=== PATIENT | female | born 1945 | race Caucasian/White ===

== ENCOUNTER → 2017-04-07 13:35 | Outpatient (CLI) | payer MEDICARE, OTHER ==
[2011-05-28 08:59] VITALS: BMI 24.4
== END | disposition home or self-care (01) ==
LOC: D.CT 13:35
DX: R10.9 Unspecified abdominal pain (principal)

== ENCOUNTER → 2017-11-29 09:28 | Outpatient (CLI) | payer MEDICARE, OTHER ==
[2011-05-28 08:59] VITALS: BMI 24.4
--- NOTE | ~2017-11-29 | EC ---
PATIENT:EILEEN RUANO DATE OF SERVICE: 11/29/17 SEX: F MEDICAL RECORD: [id number] DATE OF : [birth year] LOCATION:[facility] AGE OF PATIENT: 71 ADMISSION DATE: 11/29/17 REFERRING PHYSICIAN: INTERPRETING PHYSICIAN: TONY AVENDANO MD ECHOCARDIOGRAM REPORT ECHO CHARGES 4 ECHO COMPLETE CLINICAL DIAGNOSIS: ANGINA,ABN STRESS,DYSPNEA/HTN ECHOCARDIOGRAPHIC MEASUREMENTS (adult normal given) AC root (d.<3.7cm) 3.5 cm LV Septum d (<1.2 cm> 1.2 cm Valve Excursion 1.4 cm LV Septum (systole) 1.4 cm Left Atria (s.<4.0cm> 3.9 cm LVPW d(<1.2cm) 1.4 cm RV (d.<2.3cm) 3.7 cm LVPW (sytole) 1.5 cm LV diastole(<5.6CM) 4.4 cm MV E-F(>70mm/sec) cm LV systole 2.1 cm LVOT Diameter 1.6 cm MV exc.(>10mm) 1.2 cm Est.ejection fraction (50-75%) % Pericardial Effusion N DOPPLER: LVIT cm/sec A 57.0 cm/sec E 41.0 cm/sec LA cm/sec RVSP 34 mmHg LVOT 115 cm/sec AOP1/2T 531 m/s Asc. Ao 150 cm/sec RVOT 86 cm/sec RA cm/sec PA 112 cm/sec AV Gradient Peak 9.00 mmHg AV Mean 4.71 mmHg AV Area 1.8 cm MV Gradient Peak 1.96 mmHg MV Mean 1.00 mmHg MV Area cm COMMENTS: Train Starter: Cleveland FLOREZ Interior Decorator: Becky Avendano TAPE# PACS DATE OF SERVICE: 11/29/2017 PROCEDURE: Transthoracic echocardiogram. FINDINGS: 1. Left ventricle has evidence of mild left ventricular hypertrophy with inflow characteristics showing diastolic dysfunction. 2. The mitral valve appears to be normal structurally. 3. The aortic valve is mildly sclerotic with mild aortic insufficiency with no evidence of significant stenosis. ECHOCARDIOGRAM REPORT [id number] EILEEN RUANO 4. The mitral valve has mild mitral regurgitation, but is structurally normal. 5. The tricuspid valve has mild tricuspid regurgitation. The RVSP is upper limits of normal to mildly elevated at 34 mmHg. 6. There is no significant pleural effusion or pericardial effusion. 7. The right atrium is normal size, normal function. 8. The right ventricle is mildly dilated with normal function. CONCLUSION: The patient has evidence of hypertensive heart disease with borderline elevated pulmonary pressures. TRANSINT:[id number] Voice Confirmation ID: [id number] DOCUMENT ID: [id number] TONY AVENDANO MD at 1522 CC: [id number] DICTATION DATE: 11/30/17 1003 SERVICES DELIVERY DRIVER: 11/30/17 1247 DEP CLI 11/29/17 [place] [address] [place] [address]
== END | disposition home or self-care (01) ==
LOC: D.ECHO 09:28
DX: I20.9 Angina pectoris, unspecified (principal); I10 Essential (primary) hypertension; R06.00 Dyspnea, unspecified; R94.39 Abnormal result of other cardiovascular function study

== ENCOUNTER → 2017-12-12 19:13 | Outpatient (CLI) | payer MEDICARE, OTHER ==
[2011-05-28 08:59] VITALS: BMI 24.4
== END | disposition home or self-care (01) ==
LOC: D.SLEEP 08:00
DX: G47.10 Hypersomnia, unspecified (principal)

== ENCOUNTER → 2017-12-20 13:02 | Outpatient (CLI) | payer MEDICARE, OTHER ==
[2011-05-28 08:59] VITALS: BMI 24.4
[2017-12-20 14:10] LABS: CHOL - HDL RATIO 5.5 ratio (2.3-4.1); LDL-HDL RATIO 3.4 ratio (1.5-3.5)
== END | disposition home or self-care (01) ==
LOC: D.LABREF 13:02
PROVIDERS: Internal Medicine Cardiovascular Disease
DX: E78.5 Hyperlipidemia, unspecified (principal)

== ENCOUNTER → 2018-02-27 09:55 | Outpatient (CLI) | payer MEDICARE, OTHER ==
[2011-05-28 08:59] VITALS: BMI 24.4
[~2018-02-27 09:55] MED LIST: ATIVAN1 MG PO; AZULFIDINE500 MG PO; BUPROPION XL150 MG PO; CARAFATE1 G PO; COREG12.5 MG PO; ELIQUIS5 MG PO; LAMICTAL200 MG PO; LEVOTHYROXINE75 MCG PO; MYRBETRIQ50 MG PO; NEURONTIN 300300 MG PO; OMEPRAZOLE20 M1 PO; PROPRANOLOL HCL60 M1 PO; REPATHA SY140 MG/1 M SC; ULTRAM50 MG PO; ZOLOFT100 MG PO
[2018-03-21 08:21] VITALS: BMI 23.8
== END | disposition home or self-care (01) ==
LOC: D.NM 09:55
DX: E83.52 Hypercalcemia (principal)

== ENCOUNTER → 2018-03-21 07:07 | Outpatient (CLI) | payer MEDICARE, OTHER ==
[~2018-03-21] VITALS: Ht 152.4 cm; Wt 55.5 kg
--- NOTE | ~2018-03-21 | TEE ---
PATIENT:EILEEN RUANO MEDICAL RECORD: [id number] LOCATION:[facility] AGE OF PATIENT: 72 ADMISSION DATE: 03/21/18 SEX: F REFERRING PHYSICIAN: INTERPRETING PHYSICIAN: TONY AVENDANO MD TRANSESOPHAGEAL ECHOCARDIOGRAM Date: 03/21/18 BULMARO CHARGE Y INDICATIONS: ATRIAL FIB/ ASSESS FOR CLOTS, PRE-CARDIOVERSION PREMEDICATIONS: PATIENT'S RESPONSE PROCEDURE DOPPLER MEASUREMENTS: LVIT LA PA RA LVOT RVOT Asc. Ao AV Gradient Peak AV Mean AV Area MV Gradient Peak MV Mean MV Area INTERPRETATION: Doppler: 2-D: NO CLOTS COLOR FLOW DOPPLER NORMAL SALINE STUDY: MISCELLANOUS: DIAGNOSIS: PLAN: Oven Heater:4 Dr. Avendano [place] Instructor: Cleveland FLOREZ COMMENTS: DATE OF SERVICE: 03/21/2018 PROCEDURES: 1. Transesophageal echocardiogram. 2. Direct current biphasic cardioversion. INDICATION: Atrial fibrillation. DESCRIPTION OF PROCEDURE: The patient was into brought to cardiac TRANSESOPHAGEAL ECHOCARDIOGRAM REPORT [id number] EILEEN RUANO catheterization lab in stable condition. The patient in supine position on the rney, where she was placed in the left lateral position and with anesthesia support, we were able to advance the transesophageal echo probe into the mid esophagus. We were able to visualize left atrial appendage without any difficulty showing no thrombus or clot. We then cardioverted the patient while she was in a supine position with 200 joules of biphasic energy successfully. IMPRESSION: Successful BULMARO and cardioversion. RECOMMENDATIONS: Continue current therapies. Follow up in 1 week with EKG. TRANSINT:[id number] Voice Confirmation ID: [id number] DOCUMENT ID: [id number] at 0819 CC: [id number] DICTATION DATE: 03/21/1824 PACKING SUPERVISOR: 03/21/18 1450 DEP CLI 03/21/18 [place] [id number] [place] [id number]
--- NOTE | ~2018-03-21 | HEMODYNAMI ---
PATIENT:EILEEN RUANO MEDICAL RECORD: [id number] : 47 LOCATION:[facility] ADMISSION DATE: 03/21/18 Generatedon:03/21/20189:36 Patient name: EILEEN RUANO Patient #: [id number] SSN: : 1945 Date of study: 03/21/2018 Page: Of Hemodynamic Procedure Report Patient Data Patient Demographics Procedure consent was obtained First Name: EILEEN Gender: Female Last Name: BINDU : 1945 Patient #: [id number] Age: 72 year(s) Race: Unknown Additional ID: [id number] Contact details [address]: [address] [place] [address] State: [place] City: [place] Zip code: [address] Past Medical History Allergies Allergen Reaction Date Comments Reported Other allergy 03/21/2018 CORGARD, MACRODANTIN, TALWIN, TETRACYCLIN Admission Admission Data Admission Date: 03/21/2018 Admission Time: 7:07 Lab Results Lab Result Date: 03/21/2018 Lab Result Time: 0:00 Biochemistry Name Units Result Min Max BUN mg/dl 23 --(----)-* 7 18 Creatinine mg/dl 1 --(--*-)-- 0.6 1.3 CBC Name Units Result Min Max Hemoglobin g/dl 12.1 *-(----)-- 13.5 17.5 Procedure Procedure Types Cath Procedure Diagnostic Procedure Cardioversion External BULMARO Procedure Description Procedure Date Procedure Date: 03/21/2018 Procedure Start Time: 8:52 Procedure Staff Name Function Max Padilla MD Performing Physician Leslie Silva RT Monitor Cary Child RN Nurse Arjun Mancia MD Additional personnel Raman Walsh Dope Mixer Procedure Data Cath Procedure Estimated blood loss: 0 ml Procedure Complications No complications Procedure Medications Medication Administration Route Dosage Oxygen NC 2 l/min unlisted medication 30 ml unlisted medication 30 ml Refer to Anesthesia Notes for Sedation Medications Hemodynamics Rest HGB: 12.1 (g/dl) Heart Rate: 90 (bpm) Snapshots Pre Cath Intra NCS Post Cath Vital Signs Time Heart Resp SPO2 etCO2 NIBP (mmHg) Rhythm Pain Sedation Rate (ipm) (%) (mmHg) Status Level (bpm) 8:59:33 87 24 95 0 134/90(100) NSR 0 (11) 10(A) , No pain 9:05:09 87 18 94 0 127/49(97) NSR 0 (11) 10(A) , No pain 9:09:18 94 17 95 0 130/95(111) NSR 0 (11) 10(A) , No pain 9:14:15 86 16 96 0 112/95(103) NSR 0 (11) 10(A) , No pain 9:19:12 83 21 94 27.7 107/78(88) NSR 0 (11) 10(A) , No pain 9:23:26 66 33 93 11.2 118/70(100) NSR 0 (11) 9(A) , No pain 9:27:42 65 17 97 31.4 122/68(84) NSR 0 (11) 9(A) , No pain 9:30:20 68 16 95 37.4 124/69(78) NSR 0 (11) 9(A) , No pain 9:34:36 67 18 97 33.7 114/76(92) NSR 0 (11) 10(A) , No pain Medications Time Medication Route Dose Verified Delivered Reason Notes Effectivene ss by by 9:15:45 Oxygen NC 2 Maxlazaro Townsend used for l/min Randy Child RN procedure 9:17:11 Visc. gargle 30 ml Max Buffie Per Licocaine Randy Child RN physician 9:17:17 Refer to Max Buffie Anesthesia Randy Child RN Notes for MD Sedation Medications 9:17:28 Malox gargle 30 ml Max Buffie Per Randy Child RN physician Procedure Log Time Note 8:45:57 Cary Child RN sent for patient. Start room use. 8:53:06 Time tracking: Regular hours (M-F 7:00 - 5:00) 8:53:09 Plan of Care:Hemodynamics will remain stable., Cardiac rhythm will remain stable., Comfort level will be maintained., Respiratory function will remain adequate., Patient/ family verbilizes understanding of procedure., Procedure tolerated without complication., Recovers from procedure without complications.. 8:53:10 Signed procedure consent form obtained from patient. 8:53:15 Patient arrived from Pre/Post Procedure Room to CCL 3. Patient remains on bed/stretcher for procedure. 8:53:16 Warm blankets applied, and adeola hugger turned on for patient comfort. 8:53:17 Correct patient and procedure confirmed by team. 8:53:18 ECG and BP/O2 sat monitors applied to patient. 8:58:24 Vital chart was started 8:58:38 Baseline sample Acquired. 8:58:43 Rhythm: atrial flutter 8:58:44 Full Disclosure recording started 8:58:52 H&P Date Dictated: 03/14/2018 Within 30 days and on chart., H&P Addendum completed by physician on day of procedure. (MUST COMPLETE FOR ALL OUTPATIENTS). 8:58:54 Pre-procedure instructions explained to patient. 8:58:54 Pre-op teaching completed and patient verbalized understanding. 8:58:56 Family in patients room. 8:58:57 Patient NPO since Midnight. 8:59:36 Patient allergic to Other allergyCORGARD, MACRODANTIN, TALWIN, TETRACYCLIN 8:59:39 Is the patient allergic to Iodine/contrast media? No. 8:59:41 Is patient on blood thinner?Yes 9:00:14 LAST DOSE OF ELIQUIS 5.13.18 9:00:17 Patient diabetic? No. 9:00:21 Patient not . Patient is over age 55. 9:00:27 Previous problem with sedation/anesthesia? No ? 9:00:29 Snore? Yes 9:00:30 Sleep apnea? No 9:00:31 Deviated septum? No 9:00:32 Opens mouth fully? Yes 9:00:33 Sticks out tongue? Yes 9:00:35 Airway obstruction? No ? 9:00:37 Dentures? No ? 9:00:42 Patient pain scale 0/10 ?. 9:00:55 IV patent on arrival in left antecubital with 0.9% NaCl at KVO. 9:03:03 Quick Combo opened to sterile field. 9:08:18 Dr. Padilla requested for a BULMARO. Raman notified. Pt. signed consent 9:08:43 Lab Result : BUN 23 mg/dl :: Lab Result : Creatinine 1 mg/dl :: Lab Result : Hemoglobin 12.1 g/dl 9::46 Lab results completed and on chart. 9:15:45 Oxygen 2 l/min NC was administered by Cary Child RN; used for procedure; 9:17:11 Visc. Licocaine 30 ml gargle was administered by Cary Child RN; Per physician; 9:17:17 Refer to Anesthesia Notes for Sedation Medications was administered by Cary Child RN; ; 9:17:18 --------ALL STOP TIME OUT------ 9:17:19 Final Timeout: patient, procedure, and site verified with staff and physician. All members of the team are in agreement. 9:17:25 Physical assessment completed. ASA score P 2 - A patient with mild systemic disease as per Max Padilla MD. 9:17:28 Malox 30 ml gargle was administered by Cary Child RN; Per physician; 9:17:28 Sedation plan: TIVA Medication:Propofol 9:18:05 Arjun Mancia MD present and monitoring patient for TIVA. 9:18:10 Raman Walsh [employer] Grade Teacher present for BULMARO. 9:19:50 BULMARO started. 9:20:47 BULMARO completed. 9:21:06 Quick combo pads placed on patients chest and back. 9:21:21 Defibrillator synced and charged to 200 Joules. 9:21:30 Shock delivered. 9:21:52 Patient cardioverted to sinus rhythm . 9:21:58 Procedure ended.(Physican Out) 9:23:37 Sharps counted by scrub and verified by R.N. 9:23:41 Post-procedure physical assessment completed. ASA score P 2 - A patient with mild systemic disease as per Max Padilla MD. 9:23:44 Post procedure rhythm: sinus rhythm 9:23:46 Estimated blood loss: 0 ml 9:23:48 Post procedure instruction explained to patient.Patient verbalizes understanding. 9:23:49 Patient needs reinforcement of post procedure teaching. 9:23:56 Procedure type changed to Cath procedure, Diagnostic procedure, Cardioversion External, BULMARO 9:24:09 Procedure and supply charges have been captured, reviewed, submitted and are correct. 9:24:12 Procedure Complication : No complications 9:35:26 Vital chart was stopped 9:35:27 See physician's report for complete and final results. 9:35:29 Report given to Pre/Post Procedure Room. 9:35:32 Patient transfered to Pre/Post Procedure Room with Bed. 9:35:42 End room use (Document Last) Device Usage Item Manufacture Quantity Catalog Hospital Part Current Minimal Lot# / Name Number Charge Number Stock [facility] Gogo n[place]# Code [facility] [place] [facility] 1 [id number] Combo Signature Audit [place] Stage Time Signature Unsigned Intra-Procedure 03/21/2018 Leslie Silva 9:36:22 AM RT(R) Signatures Monitor : Leslie Silva Signature : RT Date : Time : [address] [address]
[2018-03-21 08:21] VITALS: BP 139/79; Ht 152.4 cm; Wt 55.5 kg
[2018-03-21 08:27] LABS: BASOPHILS 0.5 % (0-2); EOSINOPHILS 3.3 % (0-7); HEMATOCRIT 36.3 % (36.0-48.0); HEMOGLOBIN 12.1 g/dL (12-16); IMMATURE GRANULOCYTES 0.2 % (0-5); LYMPHOCYTES 38.4 % (15-50); MCHC 33.3 g/dL (31.0-37.0); MEAN PLATELET VOLUME 8.6 fL (7.4-10.4); MONOCYTES 9.4 % (2-11); NEUTROPHILS 48.2 % (40-80); PLATELET COUNT 159 10x3/uL (130-400); RBC 3.78 10x6/uL (4.00-5.40); RDW 13.2 % (11.5-14.5); WBC 4.3 10x3/uL (4.8-10.8)
[2018-03-21 08:36] LABS: INR 1.15 (0.85-1.17); PROTIME 14.3 SECONDS (11.6-15.0)
[2018-03-21 08:45] LABS: ANION GAP 14.6 mmol/L (8-16); CALCIUM 9.9 mg/dL (8.5-10.1); CARBON DIOXIDE 24.2 mmol/L (21.0-32.0); POTASSIUM - SERUM 3.8 mmol/L (3.5-5.1)
== END | disposition home or self-care (01) ==
LOC: D.CATH 07:07
PROVIDERS: Internal Medicine Cardiovascular Disease
DX: I48.91 Unspecified atrial fibrillation (principal); Z01.812 Encounter for preprocedural laboratory examination

== ENCOUNTER → 2018-05-25 15:48 | Outpatient (CLI) | payer MEDICARE, OTHER ==
[2018-03-21 08:21] VITALS: BMI 23.8
== END | disposition home or self-care (01) ==
LOC: D.MRI 05-23 14:00
DX: G45.9 Transient cerebral ischemic attack, unspecified (principal)

== ENCOUNTER → 2020-04-21 18:14 | Outpatient (CLI) | payer MEDICARE, OTHER ==
[2018-03-21 08:21] VITALS: BMI 23.8
== END | disposition home or self-care (01) ==
LOC: D.CT 18:14
PROVIDERS: ATTEND Family Medicine
DX: R10.9 Unspecified abdominal pain (principal)